=== PATIENT | male | born 1990 | race Caucasian/White ===

== ENCOUNTER 2016-11-26 22:49 | Inpatient (IN) | payer OTHER ==
--- NOTE | ~2016-11-26 | CO ---
Unit #: [id number] #: [id number] Patient: MONICA CALDERON [id number] [address] [address] [id number] I MR#: [id number] NAME: MONICA CALDERON ROOM: [facility] Age: 26 Sex: M Admission Date: 11/27/2016 : 1990 Attending Physician: Garrett Gallego M.D. CONSULTATION REPORT HISTORY OF PRESENT ILLNESS Mr. Calderon is a 26-year-old white male, who was admitted through the emergency room and acute respiratory failure after a drug overdose. History comes from the electronic medical records. The patient is on the ventilator. Apparently, the patient's attempted to call the patient, but could not reach her ; therefore, the patient's brother went to find him he was found cyanotic and not breathing in a car. Apparently according to reports, he possibly took some heroin and on some pain pills from friends. He was brought to the emergency room not breathing and cyanotic, he did have a pulse. He was given Narcan and became extremely combative and confused and required Geodon and then further Narcan. He was combative, but confused. Arterial blood gases revealed a severe acidosis with a pH of 6.9, pCO2 of 52, pO2 of 76 on 5 L. He was subsequently intubated. He subsequently pulled out his endotracheal tube and was reintubated. This morning most recent arterial blood gases revealed pH of 7.33, pCO2 of 43, pO2 of 69 on 40%, assist control of 18, rate of 18, tidal volume 500, PEEP of 5. His BNP is consistent for a sodium of 141, chloride of 105, CO2 of 20, anion gap 16. Liver function tests were elevated. Lactic acid was 5.7. Ammonia level was 99. Alcohol level was 6. His white blood cell count was 27,000. His hematocrit was 49.3, platelet count was normal. Tox screen positive for marijuana and opiates. Urinalysis; 2+ protein, glucose 500, 5 to 10 white cells. Blood cultures currently pending. Urine culture is pending. PAST MEDICAL HISTORY History of GERD. ALLERGIES No known allergies. MEDICATIONS Unknown medications. FAMILY HISTORY Apparently, negative for heart disease. SOCIAL HISTORY He is and has child. Drinks occasional beer. Some marijuana. Nonsmoker. REVIEW OF SYSTEMS Not possible, the patient intubated and sedated. PHYSICAL EXAMINATION Unit #: [id number] #: [id number] Patient: MONICA CALDERON GENERAL: White male, orally intubated, #8 ET tube. VITAL SIGNS: Blood pressure is 102/63, pulse 105, respiratory rate 16, and afebrile temperature 99.1. HEENT: Normocephalic and atraumatic. Pupils are equal, round, reactive. Sclerae nonicteric. Nasal passages patent. Orally intubated. NECK: Supple. Trachea midline. No cervical or supraclavicular lymphadenopathy. LUNGS: Clear. CARDIAC: Regular rate and rhythm. Could not appreciate murmur, rub, or gallop. ABDOMEN: Nontender. Bowel sounds present. No hepatosplenomegaly. EXTREMITIES: Without clubbing, cyanosis, or edema. NEURO: Sedated on vent. SKIN: Warm and dry. DIAGNOSTIC STUDIES LABORATORY RESULTS: Reviewed. Other lab work as noted. IMAGING STUDIES: Chest x-ray shows ET tube about 2 cm above raghav. Mild right lower lobe infiltrate. IMPRESSION 1. Drug overdose secondary to opiates. 2. Combined metabolic and respiratory acidosis, this improving. 3. Right lower lobe aspiration pneumonia. 4. Elevated liver function tests. PLAN Vent support, wean vent when he can control airway, sedation as needed, antibiotics for aspiration pneumonia, DVT prophylaxis, ulcer prophylaxis. We will also check acetaminophen level given elevated liver function tests. We will make further recommendations pending this. Dictated by... Cash Lindsey M.D. SHERON/eris TD: 11/28/2016 01:02 JOB #: [id number] CONSULTATION REPORT Page 1 of 1 X Cash Lindsey MD X CONSULTATION REPORT
--- NOTE | ~2016-11-26 | A ---
[facility] & [facility] Nutrition Therapy DATE: 11/27/16 Patient: MONICA CALDERON Physician: CINTIA Address: [address] [place] [address] Room/Bed: [address], Zip: [place] [address] Admit Date: 11/27/16 Date of : [birth year] Height: 5 7 Weight: 152 69 NUTRITIONAL ASSESSMENT: REASON: NPO 26 y/o male admitted for OD PMH: GERD, peptic ulcer disease, ETOH and drug abuse Anthropometrics: Ht: 5'7" Wt: 69.1 kg (152#) BMI: 23.9 Labs: Gluc 145, AST 309, ALT 275, POC 268 Meds: Propofol @ 12.8 mL/hr, Pepcid I/O & Bowel function: 352/850, last BM 11/26 Skin Integrity: bruising (scattered), no edema noted Estimated Nutrition Needs: 9517-5346 kcal (25-30 kcal/kg) 83-103 g protein (1.2-1.5 g/kg) Assessment: Chart reviewed, events noted. Pt was admitted for heroine OD. Pt is currently on the vent, questionable plans to extubate tomorrow morning. Pt has a NGT to low wall suction due to pt having emesis. Per RN, pt vomited causing aspiration pneumonia. Pt is receiving propofol @ 12.8 ml/hr, giving an extra 338 kcal/d. No plans for nutrition support at this time. See recommendations below. Dx: Inadequate oral intake RT current clinical condition AEB NPO status. Intervention: 1. Enteral nutrition Monitoring, Evaluation and Goals: 1. Enteral nutrition; provide ~80-100% of estimated energy needs/ goal volume 2. Labs; WNL 3. Weight; prevent unintentional weight loss 4. GI; promote regular GI function Recommendations: 1. If the pt remains intubated, initiate enteral nutrition with Jevity 1.5 @ 20 mL/hr. Increase by 10 mL q 8 hrs as tolerated to indicated goal rate: [facility] Nutrition Therapy DATE: 11/27/16 Patient: MONICA CALDERON Physician: CINTIA Address: [address] [place] [address] Room/Bed: [address], Zip: [place] [address] Admit Date: 11/27/16 Date of : [birth year] Height: 5 7 Weight: 152 69 WHILE THE PT IS RECEIVING PROPOFOL: -Increase Jevity 1.5 to 45 mL/hr + 30 mL Prostat daily. This will provide: 2058 kcal/ 84 g protein/ 820 mL free H2O. WHEN THE PT IS NO LONGER RECEIVING PROPOFOL: -Discontinue Prostat -Increase Jevity 1.5 to 55 mL/hr to provide: 1980 kcals/ 84 grams protein/ 1003 mL free H20 2. If the pt is extubated, recommend DERMATOLOGIST evaluation if pt is intubated for >24 hrs. Pt is at a moderate-severe nutrition risk. RD will f/u per protocol. Respectfully, Araceli Hinds, Industrial Hire Sales Assistant Marlene Perry RD, LD Food and Nutritional Services [facility] cc: client file
--- NOTE | ~2016-11-26 | CR72 ---
[facility] A Service of [facility] & [facility] RADIOLOGY TEXT RESULTS PATIENT: MONICA CALDERON LOCATION: [place] [id number] : [birth year] UNIT #: [id number] AGE: [address]: Garrett Gallego MD SEX: M ORDER DR: [id number] [facility] [address] [place], [place] [address] [id number] I MR#: [id number] Acc #: [id number] NAME: MONICA CALDERON : 1990 SEX: M STUDY DATE/TIME: 11/26/2016 23:44 UNIT: [facility] ROOM: [facility] STUDY DESCRIPTION: CR Chest Single View Portable Attending Physician: Heather Scott M.D. Ordering Physician: Helen Concepcion M.D. Primary Care Physician: No Primary Care Physician MEDICAL IMAGING REPORT This report is preliminary unless electronic signature is present EXAM AP portable chest 11/26/2016 HISTORY A 26-year-old male in the ED after reported drug overdose. Respiratory failure. Intubated. TECHNIQUE AP portable chest x-ray. FINDINGS Endotracheal tube tip is in the uppermost thoracic trachea about 6 cm above the raghav with retention balloon in the lower cervical trachea. The lungs are symmetrically expanded and clear. No visible pneumomediastinum or pneumothorax. IMPRESSION Endotracheal tube tip in the uppermost thoracic trachea as noted above. Dictated by... Aryan Cevallos M.D. THIS IS AN ELECTRONICALLY VERIFIED REPORT Aryan Cevallos M.D. at 11/27/2016 9:53 PM Dario TD: 11/27/2016 06:53 JOB #: [id number] MEDICAL IMAGING REPORT Page 1 of 1 COPY
--- NOTE | ~2016-11-26 | CO ---
Unit #: [id number] #: [id number] Patient: MONICA CALDERON [id number] [address] [address] [id number] I MR#: [id number] NAME: MONICA CALDERON ROOM: 568 Age: 26 Sex: M Admission Date: 11/27/2016 : 1990 Attending Physician: Garrett Gallego M.D. Consultation Date: 11/28/2016 CONSULTATION REPORT REASON FOR CONSULTATION Elevated troponin. HISTORY OF PRESENT ILLNESS This is a 26-year-old white male, new to our group with a past medical history of GERD, polysubstance abuse, and occasional alcohol use. The patient is currently on a ventilator and information has been obtained from documentation and nursing staff. The patient is alert and off sedation and is also able to nod his head. There are no reports of hypertension, hyperlipidemia, diabetes mellitus, myocardial infarction, or cerebrovascular accident. The patient has no past surgical history or home medications. He does use marijuana and heroin. He presented to the emergency department after being found unresponsive. Family went to check on him and he was reportedly in a car and not responding to commands. EMS was dispatched and he was given Narcan. He subsequently became agitated and received Geodon. He was unable to protect his airway and he was subsequently intubated. His initial labs revealed a lactic acid of 5.7. White blood cell count was high. Chest x-ray showed concern for aspiration pneumonia. He was admitted to the intensive care unit and started on antibiotics. Additional labs revealed elevated LFTs. Troponin was elevated at 0.91 and then 1.03. EKG revealed sinus tachycardia with some motion artifact. There were no acute ST or T-wave changes. A 2D echocardiogram was completed at the bedside and revealed normal valves. There was some mild hypokinesis of the left ventricle. Ejection fraction was reduced at 35% to 40%. Cardiology was consulted for elevated troponin. PAST MEDICAL HISTORY 1. GERD. 2. Polysubstance abuse with heroin and marijuana and occasional alcohol use. 3. Nonsmoker. PAST SURGICAL HISTORY None. HOME MEDICATIONS None. ALLERGIES No known drug allergies. SOCIAL HISTORY Unit #: [id number] #: [id number] Patient: PATKOVIC,ASMIR Difficult to obtain per patient. According to documentation, the patient has a history of heroin and marijuana use. This has been confirmed on urine toxicology. There are no reports of tobacco abuse. FAMILY HISTORY Difficult to obtain per patient. REVIEW OF SYSTEMS Difficult to obtain per patient. Please see details in HPI. PHYSICAL EXAMINATION VITAL SIGNS: Temperature 97.7, pulse 72, blood pressure 109/66. CONSTITUTIONAL: This is a 26-year-old white male, in no acute distress. He is alert, but currently on a ventilator. SKIN: Moist and diaphoretic. NECK: Supple. No jugular vein distention. No hepatojugular reflux. Normal carotid upstrokes. No carotid bruits auscultated. HEART: S1 and S2. Regular rate and rhythm. No murmurs, rubs, or gallops. LUNGS: Bilateral breath sounds have coarse with rhonchi throughout. Respirations even and nonlabored. No rales or wheezes. ABDOMEN: Soft, nontender, and nondistended. Positive bowel sounds auscultated x4 quadrants. No ascites noted. EXTREMITIES: Bilateral lower extremities have no pretibial pitting edema. DP and PT pulses are 2+. Capillary refill less than 2 seconds. DIAGNOSTIC STUDIES LABORATORY RESULTS: White blood cell count 13.8, hemoglobin 13.3, hematocrit 40.9, platelets 137. Sodium 138, potassium 4.3, chloride 113, CO2 of 18, BUN 11, creatinine 0.9, glucose 68, magnesium 2.3, protein 5.9, albumin 3.1, AST 64, ALT 124, alkaline phos 51. Troponin 0.91, 0.91, and 1.03. BNP 56. Ammonia 99. Urine toxicology positive for marijuana and opioids. Urinalysis positive for protein, blood, and white blood cells. Urine culture, blood cultures, and sputum culture pending. CARDIOVASCULAR STUDIES: EKG reveals sinus tachycardia with a ventricular rate of 133 beats per minute. Motion artifact noted. No acute ST-T wave changes. QTc 450 msec. IMPRESSION 1. Drug overdose. 2. Aspiration pneumonia. 3. Elevated troponin. 4. Elevated LFTs. 5. Elevated ammonia. 6. Mild thrombocytopenia. 7. Polysubstance abuse with heroin and marijuana. 8. Occasional alcohol use, noncompliance. PLAN 1. The patient presented to the hospital with a drug overdose and was subsequently intubated and transferred to the intensive care unit. 2. He started on antibiotics for aspiration pneumonia. 3. Cardiology was consulted for elevated troponin. The patient's troponin level is nonspecific. There were no ischemic changes on EKG. 4. A 2D echocardiogram revealed a left ventricular ejection fraction of 35% to 40%, which is most likely due to drug abuse and/or alcohol. 5. We will plan for an elective stress test. The patient will also need Unit #: [id number] #: [id number] Patient: MONICA CALDERON a repeat echo to assess LV function at a later date. 6. No beta-zander or CRISTIAN or ARB will be prescribed at this time due to borderline low blood pressure. 7. The patient needs extensive drug rehabilitation. 8. He has been advised to refrain from drug and alcohol abuse. Dictated by... ASHOK Spaulding TD: 11/29/2016 17:52 JOB #: [id number] CONSULTATION REPORT Page 1 of 1 X X CONSULTATION REPORT
--- NOTE | ~2016-11-26 | EKG ---
PATIENT: MONICA CALDERON UNIT #: [id number] Ventricular Rate: 59 BPM Atrial Rate: 59 BPM P-R Interval: 114 ms QRS Duration: 84 ms Q-T Interval: 422 ms QTC Calculation(Bezet): 417 ms P [place]: 12 degrees Calculated R [place]: 72 degrees Calculated T [place]: 50 degrees Diagnosis Line: Sinus bradycardia with sinus arrhythmia Diagnosis Line: Nonspecific T wave abnormality Diagnosis Line: Abnormal ECG Diagnosis Line: When compared with ECG of 29-NOV-2016 06:13, Diagnosis Line: (unconfirmed) Diagnosis Line: No significant change was found Diagnosis Line: Confirmed by JONATAN CLEMENT MD ([id number]) on Diagnosis Line: 11/30/2016 2:19:49 PM INTERPRETING MD: EVELIN
--- NOTE | ~2016-11-26 | CO ---
Unit #: [id number] #: [id number] Patient: MONICA CALDERON [id number] [address] [place], [place] [address] [id number] MR#: [id number] NAME: MONICA CALDERON ROOM: 568 Age: 26 Sex: M Admission Date: 11/27/2016 : 1990 Attending Physician: Garrett Gallego M.D. Consultation Date: 11/30/2016 CONSULTATION REPORT REASON FOR CONSULTATION Accidental overdose on opiate, history of alcohol abuse. HISTORY OF PRESENT ILLNESS Monica is a 26-year-old male, seen in room 568 on 11/30/2016 at [facility]. The patient was admitted on 11/27/2016 with opioid overdose accidental with respiratory failure. The patient reports that he uses alcohol and it runs in the family. The patient reports that his brother has a problem with the opioid abuse and he gave him some and he took it, and ended up in the hospital. The patient needed Narcan, was extremely combative and confused. The patient responded well with the treatment and doing better. The patient currently denied any suicidal or homicidal ideation. Denied any psychotic symptom, but agreed to get some help. PAST PSYCHIATRIC HISTORY Remarkable for history of alcohol abuse. No history of any depression or any inpatient treatment or outpatient treatment. MEDICAL HISTORY AND MEDICATION HISTORY History of GERD, peptic ulcer disease. ALLERGIES No known drug allergies. FAMILY HISTORY AND SOCIAL HISTORY The patient has a good support system. , has a child, and history of substance abuse. No history of any abuse. REVIEW OF SYSTEMS Complete review of systems is unremarkable for any complaints at this time. MENTAL STATUS EXAMINATION General appearance, the patient dressed casually. Attention span and concentration, fair. Speech, regular rate and coherent. Oriented in time, place, and person. Mood and affect were sad and dysphoric, but able to smile. Thought process, coherent. Thought content, the patient denied any thoughts of harming self or others or any psychotic symptom. Recent and remote memory, fair. Language, able to name object, repeat phrases. Fund of knowledge, fair. Insight and judgment, fair to slightly impaired. DIAGNOSES Psychiatric: Opioid use disorder, severe F11.20; alcohol use disorder, severe, F10.20; mood disorder, not otherwise specified, F32.9. Unit #: [id number] #: [id number] Patient: MONICA CALDERON Secondary diagnosis: Deferred. Medical diagnosis: Please refer to H and P. Stressors: Psychosocial stressors. ASSESSMENT/PLAN 1. Supportive psychotherapy and psychoeducation provided to the patient. 2. Educated about benefits and side effects of medication and course and prognosis of illness. Advised at this time, the patient to follow up on in outpatient CD-IOP program at [facility] telephone number and information given #[phone]. Please feel free to call if any questions, telephone #[phone]. Dictated by... Dorota Bradley/eris TD: 12/01/2016 02:39 JOB #: [id number] CONSULTATION REPORT Page 1 of 1 X Mohinder Tello MD X CONSULTATION REPORT
--- NOTE | ~2016-11-26 | HP ---
Unit #: [id number] #: [id number] Patient: MONICA CALDERON [id number] [address] [place], [place] [address] [id number] MR#: [id number] NAME: MONICA CALDERON ROOM: [facility] Age: 26 Sex: M Admission Date: 11/27/2016 : 1990 Attending Physician: Heather Scott M.D. Primary Care Physician: No Primary Care Physician HISTORY AND PHYSICAL CHIEF COMPLAINT Opiate overdose with respiratory failure. HISTORY This 26-year-old male with GERD, is admitted for respiratory failure. Through a crime scene evidence technician phone I spoke with the patient's . She attempted to call her last evening but was unable to reach her . Therefore, the patient's brother went to find him. The patient was found cyanotic, not breathing in a car. I am told that he was with friends earlier, and possibly took heroin, he has been recently taking some pain pills per these friends. In any event, he was brought to this emergency department not breathing, and cyanotic. He did have a pulse. He was given Narcan and became extremely combative and confused. He required 20 mg of IM Geodon afterwards, and then further Narcan. Although he was confused and combative he never followed commands. Ultimately an ABG was performed showing profound mixed metabolic and respiratory acidosis, although more metabolic. He was ultimately intubated. Ended up pulling out his ET tube and required intubation a second time. Chest x-ray does demonstrate an infiltrate at the bases. Labs are notable for elevated lactic acid level, borderline elevated troponin, elevated LFTs. He currently is on a Diprivan drip. PAST MEDICAL HISTORY GERD, possibly peptic ulcer disease. ALLERGIES None. HOME MEDICATIONS Unknown medicine for GERD. FAMILY HISTORY Negative for heart disease. SOCIAL HISTORY The patient lives with his and child. He drinks occasional beer. She knows that he uses marijuana but is unaware that he uses opiates. He does not smoke. REVIEW OF SYSTEMS Impossible to obtain as patient currently is intubated and sedated on a ventilator. Unit #: [id number] #: [id number] Patient: MONICA CALDERON PHYSICAL EXAMINATION GENERAL: Young male currently sedated on a ventilator. VITAL SIGNS: Temperature is 99.1, pulse 114, respirations 15, blood pressure is 90/62, O2 saturation is 98% on 40%. HEENT: Eyes - pupils are constricted. Patient is orally intubated. NECK: Supple without adenopathy or thyromegaly. CHEST: Clear. CARDIAC: Normal S1 and S2 without S3, S4 or murmur. ABDOMEN: Bowel sounds are present. No hepatosplenomegaly, tenderness, or masses. EXTREMITIES: Without clubbing, cyanosis or edema. Pedal pulses are present. No splinter hemorrhages noted over the fingernail beds. NEUROLOGIC: Patient is sedated on a ventilator. He was moving all extremities and was combative earlier, although he was not following commands earlier. DIAGNOSTIC STUDIES LABORATORY STUDIES: Hematocrit is 49.3, white blood count is 27, and normal platelet count. 11 bands noted. SMA 12 - glucose 145, CO2 20, AST 309, ALT 275, alk phos 127. Ammonia level 99. BNP normal. Lactic acid 5.7. Alcohol level 6. Initial troponin 0.91, second troponin 0.91. Urine tox positive for opiates and marijuana. Urinalysis - positive protein and glucose, 5-10 white cells, no red cells. Initial ABG - pH 6.905, pCO2 53, pO2 76, O2 saturation 84% on 5 L of oxygen. Second ABG - pH 7.26, pCO2 46, pO2 377, O2 saturation 98.7% on FIO2 100%, tidal volume 500, PEEP of 5, AC 12. IMAGING STUDIES: Head CT - no acute disease. Second chest x-ray does show a right-sided infiltrate. CARDIOLOGY STUDIES: EKG shows a sinus tachycardia rate 132, otherwise normal. ASSESSMENT 1. Opiate overdose with acute hypoxic, mildly hypercapnic respiratory failure and likely aspiration pneumonia. Although patient never lost his pulse, he had no respirations for an unknown period of time. 2. Mildly elevated troponin. Again unknown how long patient was hypoxic, which may have caused some ischemia. 3. Elevated LFTs, rule out shock liver, rule out hepatitis. PLANS 1. IV fluids. 2. Zosyn pending cultures. 3. Aspirin and check echo. 4. Repeat cardiac enzymes. 5. Continue sedation for now. 6. Will assess patient later today and turn sedation off to determine his neurologic status. 7. DVT and gastritis prophylaxis. 8. Pulmonary consultation. 9. Hepatitis profile. 10. Further workup depending on above. Critical care time spent evaluating this patient was 40 minutes. Unit #: [id number] #: [id number] Patient: MONICA CALDERON Dictated by Heather Scott M.D. AML/ts TD: 11/27/2016 06:04 JOB #: [id number] HISTORY AND PHYSICAL Page 1 of 1 X Heather Scott MD X HISTORY AND PHYSICAL
--- NOTE | ~2016-11-26 | CT71 ---
[facility] A Service of [facility] RADIOLOGY TEXT RESULTS PATIENT: MONICA CALDERON LOCATION: [address] : [birth year] UNIT #: [id number] AGE: [address]: Garrett Gallego MD SEX: M ORDER DR: [id number] [facility] [address] [facility] [place], [place] [address] [id number] MR#: [id number] #: [id number] NAME: MONICA CALDERON : 1990 SEX: M STUDY DATE/TIME: 11/27/2016 1:57 UNIT: [facility]3 ROOM: [facility] STUDY DESCRIPTION: CT Head Wo Contrast Attending Physician: Heather Scott M.D. Ordering Physician: Helen Concepcion M.D. Primary Care Physician: No Primary Care Physician MEDICAL IMAGING REPORT This report is preliminary unless electronic signature is present EXAM CT head, noncontrast, 11/27/2016 HISTORY 26-year-old male in the ED unresponsive and intubated after reported drug overdose. TECHNIQUE CT examination of the head was performed without IV contrast. This CT exam was performed with one or more of the following radiation dose reduction techniques: Automatic exposure control, adjustment of mA and/or kV according to patient size, and iterative reconstruction. FINDINGS The examination is negative. No evidence of intracranial hemorrhage, mass, mass effect, cerebral edema or hydrocephalus. No visible skull fracture. Mucosal thickening in the ethmoid and maxillary sinuses. IMPRESSION Negative head CT examination. Dictated by... Aryan Cevallos M.D. THIS IS AN ELECTRONICALLY VERIFIED REPORT Aryan Cevallos M.D. at 11/27/2016 9:54 PM RGW/earl TD: 11/27/2016 07:24 JOB #: [id number] MEDICAL IMAGING REPORT [facility] A Service [facility] RADIOLOGY TEXT RESULTS PATIENT: MONICA CALDERON LOCATION: [address] : [birth year] UNIT #: [id number] AGE: [address]: Garrett Gallego MD SEX: M ORDER DR: Page 1 of 1 COPY
--- NOTE | ~2016-11-26 | CR72 ---
[facility] A Service of [facility] & [facility] RADIOLOGY TEXT RESULTS PATIENT: MONICA CALDERON LOCATION: [place] [id number] : [birth year] UNIT #: [id number] AGE: [address]: Garrett Gallego MD SEX: M ORDER DR: [id number] [facility] [address] [place], [place] [address] [id number] I MR#: [id number] Acc #: [id number] NAME: MONICA CALDERON : 1990 SEX: M STUDY DATE/TIME: 11/27/2016 0:26 UNIT: [facility] ROOM: [facility] STUDY DESCRIPTION: CR Chest Single View Portable Attending Physician: Heather Scott M.D. Ordering Physician: Helen Concepcion M.D. Primary Care Physician: No Primary Care Physician MEDICAL IMAGING REPORT This report is preliminary unless electronic signature is present EXAM AP portable chest 11/27/2016 (0026 hours) HISTORY Repositioned endotracheal tube. Drug overdose. TECHNIQUE AP portable chest x-ray. FINDINGS The repositioned endotracheal tube is in good position in the lower thoracic trachea about 3 cm above the raghav. Increasing infiltrate or atelectasis in the right posterior lung base since the earlier examination. The remainder of the exam is negative. Dictated by... Aryan Cevallos M.D. THIS IS AN ELECTRONICALLY VERIFIED REPORT Aryan Cevallos M.D. at 11/27/2016 9:53 PM RGW/df TD: 11/27/2016 07:01 JOB #: [id number] MEDICAL IMAGING REPORT Page 1 of 1 COPY
--- NOTE | ~2016-11-26 | EKG ---
PATIENT: MONICA CALDERON UNIT #: [id number] Ventricular Rate: 68 BPM Atrial Rate: 68 BPM P-R Interval: 120 ms QRS Duration: 82 ms Q-T Interval: 406 ms QTC Calculation(Bezet): 431 ms P [place]: 4 degrees Calculated R [place]: 72 degrees Calculated T [place]: 66 degrees Diagnosis Line: Normal sinus rhythm with sinus arrhythmia Diagnosis Line: Normal ECG Diagnosis Line: When compared with ECG of 26-NOV-2016 23:50, Diagnosis Line: Vent. rate has decreased BY 64 BPM Diagnosis Line: Confirmed by RICHMOND BEVERLY MD ([id number]) on 11/30/2016 Diagnosis Line: 7:27:18 AM INTERPRETING MD: RUSH VILLEDA
--- NOTE | ~2016-11-26 | CR72 ---
[facility] A Service of [facility] & [facility] RADIOLOGY TEXT RESULTS PATIENT: MONICA CALDERON LOCATION: [place] [address] : [birth year] UNIT #: [id number] AGE: [address]: Garrett Gallego MD SEX: M ORDER DR: [id number] [facility] [address] [place], [place] [address] [id number] I MR#: [id number] Acc #: [id number] NAME: MONICA CALDERON : 1990 SEX: M STUDY DATE/TIME: 11/28/2016 4:58 UNIT: [facility] ROOM: [facility] STUDY DESCRIPTION: CR Chest Single View Portable Attending Physician: Garrett Gallego M.D. Ordering Physician: Heather Scott M.D. Primary Care Physician: Primary Care Physician No MEDICAL IMAGING REPORT This report is preliminary unless electronic signature is present EXAM AP portable chest 11/28/2016 HISTORY 26-year-old male admitted through the ED yesterday with drug overdose. Intubated. Follow up pulmonary status. TECHNIQUE AP portable chest x-ray. FINDINGS Endotracheal tube and NG tube are in good position. Improved right lung base infiltrate since yesterday. Lungs otherwise clear. Heart size normal. IMPRESSION Improving infiltrate or atelectasis in the right base since yesterday. Support devices in good position. Dictated by... Aryan Cevallos M.D. THIS IS AN ELECTRONICALLY VERIFIED REPORT Aryan Cevallos M.D. at 12/02/2016 5:01 PM MINA/ramon TD: 11/28/2016 08:47 JOB #: [id number] MEDICAL IMAGING REPORT Page 1 of 1 COPY
--- NOTE | ~2016-11-26 | CR72 ---
[facility] A Service of [facility] & [facility] RADIOLOGY TEXT RESULTS PATIENT: MONICA CALDERON LOCATION: [facility] [address] : [birth year] UNIT #: [id number] AGE: [address]: Garrett Gallego MD SEX: M ORDER DR: [id number] [facility] [address] [place], [place] [address] [id number] I MR#: [id number] Acc #: [id number] NAME: MONICA CALDERON : 1990 SEX: M STUDY DATE/TIME: 11/29/2016 3:45 UNIT: [facility] ROOM: [facility] STUDY DESCRIPTION: CR Chest Single View Portable Attending Physician: Garrett Gallego M.D. Ordering Physician: Garrett Gallego M.D. Primary Care Physician: No Primary Care Physician MEDICAL IMAGING REPORT This report is preliminary unless electronic signature is present EXAM Frontal chest, 11/29/2016. INDICATION Pneumonia, overdose, respiratory failure, symptoms 3 days. TECHNIQUE Frontal chest compared with 11/28/2016. FINDINGS The patient has been extubated and the enteric tube removed. Cardiac silhouette is within normal limits. The vascularity is unremarkable and the left lung is clear. Worsening opacities in the perihilar and lower lung zone on the right suspicious for pneumonia. No pneumothorax. IMPRESSION Worsening appearance of probable pneumonia in the lower lung zone on the right. No pneumothorax. Dictated by... Randall Meraz M.D. THIS IS AN ELECTRONICALLY VERIFIED REPORT Randall Meraz M.D. at 11/29/2016 10:12 PM MITCHELL/richard TD: 11/29/2016 15:19 JOB #: [id number] MEDICAL IMAGING REPORT Page 1 of 1 COPY
--- NOTE | ~2016-11-26 | EKG ---
PATIENT: MONICA CALDERON UNIT #: [id number] Ventricular Rate: 132 BPM Atrial Rate: 132 BPM P-R Interval: 126 ms QRS Duration: 86 ms Q-T Interval: 304 ms QTC Calculation(Bezet): 450 ms P [place]: 59 degrees Calculated R [place]: 87 degrees Calculated T [place]: 60 degrees Diagnosis Line: Sinus tachycardia Diagnosis Line: Otherwise normal ECG Diagnosis Line: No previous ECGs available Diagnosis Line: Confirmed by ROMEL PRADAHN MD ([id number]) on 11/28/2016 Diagnosis Line: 9:33:46 AM INTERPRETING MD: CAROLYNN VILLEDA
--- NOTE | ~2016-11-26 | DS ---
Unit #: [id number] #: [id number] Patient: MONICA CALDERON [id number] [place] [id number] [place], [place] [address] [id number] I MR#: [id number] NAME: MONICA CALDERON ROOM: 568 Age: 26 Sex: M Admission Date: 11/27/2016 : 1990 Discharge Date: 11/30/2016 Attending Physician: Garrett Gallego M.D. DISCHARGE SUMMARY REASON FOR ADMISSION Opioid overdose with resultant acute respiratory failure. HISTORY OF PRESENT ILLNESS/HOSPITAL COURSE The patient was admitted through above. Please see H and P for complete details. Subsequently secondary to drug overdose, was intubated and placed in ICU. Consultation was placed to Dr. Arreola for evaluation. The patient was gradually extubated and placed on telemetry floor, weaned to room air. At the time of discharge, recommendation has been made for p.o. Levaquin for an additional 5 days for concern for possible aspiration pneumonia. The patient did have mildly elevated troponin levels and therefore, [facility] was consulted. The patient underwent 2D echocardiogram showing ejection fraction 35% to 40%. No other acute process was noted. No vegetations were noted. Today, the patient otherwise feels well. He is ambulatory. Lung exam as well as heart exam appeared to be within normal limits. He is currently breathing on room air and he is stable for discharge. We have mentioned to him the associated long-term detrimental effects of IV and/or polysubstance abuse. He expresses understanding and agreement. At time of discharge, he will be discharged with lisinopril as well as a beta-zander including metoprolol succinate. He will follow up with his PCP in approximately 7 to 10 days for routine hospital followup. He will also follow up with [facility], Dr. Isaac and kel in approximately 4 to 6 weeks for repeat 2D echocardiogram. FINAL DISCHARGE DIAGNOSES 1. Acute respiratory failure secondary to drug overdose. 2. Polysubstance abuse/opioid abuse. 3. Mild elevation of troponin. 4. Systolic heart failure. 5. Transaminitis on admission likely secondary to passive congestion. DISCHARGE CONDITION Stable. Unit #: [id number] #: [id number] Patient: MONICA CALDERON DISCHARGE DISPOSITION Home. FINAL DISCHARGE MEDICATIONS Aspirin 81 mg p.o. daily, Levaquin 500 mg p.o. daily x5 days, Pepcid 20 mg p.o. b.i.d., lisinopril 5 mg p.o. q.h.s., Toprol-XL 25 mg p.o. q.a.m. Dictated by... Dorota Juarez/eris TD: 12/01/2016 00:02 JOB #: [id number] DISCHARGE SUMMARY Page 1 of 1 X Garrett Gallego MD X DISCHARGE SUMMARY
[2016-11-26 22:55] LABS: ARTERIAL BLD GAS O2 SATURATION 84.3 % (90.0-100.0); ARTERIAL BLOOD GAS CARBOXY HB 0.5 %sat (0.0-9.0); ARTERIAL BLOOD GAS HCO3 10.4 mmol/L; ARTERIAL BLOOD GAS MET HB 0.9 %sat (0.0-2.0)
[2016-11-26 22:58] LABS: ARTERIAL BLOOD GAS ALLEN TEST NORMAL; ARTERIAL BLOOD GAS ART SITE RIGHT RADIAL; ARTERIAL BLOOD GAS DELIVERY NASAL CANNULA; ARTERIAL BLOOD GAS PCO2 52.6 mmHg (35.0-45.0); ARTERIAL BLOOD GAS PO2 76.2 mmHg (80.0-100); ARTERIAL BLOOD GAS pH 6.905 (7.350-7.450); ARTERIAL DRAW? YES
[2016-11-27 00:42] LABS: BASOPHIL# 0.1 X10e3 (0-0.3); BASOPHIL% 0.4 % (0-2.5); DIFF IND YES; EOSINOPHIL# 0.1 X10e3 (0-0.7); EOSINOPHIL% 0.3 % (0.0-7.0); HEMATOCRIT 49.3 % (38.0-50.0); HEMOGLOBIN 15.7 gm/dL (13.0-16.0); LYMPHOCYTE# 1.6 X10e3 (1.0-3.5); LYMPHOCYTE% 5.8 % (17.0-45.0); MEAN CELL VOLUME 89.6 FL (83-96); MEAN CORPUSCULAR HEMOGLOBIN 28.6 PG (28-34); MEAN CORPUSCULAR HGB CONC 31.9 g/dL (30-36); MEAN PLATELET VOLUME 8.3 FL (6.5-11.5); MONOCYTE# 0.8 X10e3 (0-1.0); MONOCYTE% 3.1 % (3.0-12.0); NEUTROPHIL# 24.5 X10e3 (1.5-7.1); NEUTROPHIL% 90.4 % (40-75); PLATELET COUNT 250 X10e3 (140-420); RED CELL DISTRIBUTION WIDTH 12.8 % (11.0-15.5)
[2016-11-27 00:45] LABS: POC - CKMB 27.9 ng/mL (0.0-7.9); POC - TROPONIN 0.91 ng/mL (<=0.05)
[2016-11-27 00:55] LABS: NUCLEATED RED BLOOD CELL 1 /100 (0); PLATELET ESTIMATE NORMAL (NORMAL); RBC NORMAL YES
[2016-11-27 00:57] LABS: ARTERIAL BLD GAS O2 SATURATION 98.7 % (90.0-100.0); ARTERIAL BLOOD GAS CARBOXY HB 0.1 %sat (0.0-9.0); ARTERIAL BLOOD GAS HCO3 20.7 mmol/L; ARTERIAL BLOOD GAS MET HB 1.1 %sat (0.0-2.0); ARTERIAL BLOOD GAS PCO2 46.4 mmHg (35.0-45.0); ARTERIAL BLOOD GAS pH 7.259 (7.350-7.450)
[2016-11-27 01:20] LABS: ARTERIAL BLOOD GAS ALLEN TEST NORMAL; ARTERIAL BLOOD GAS ART SITE RIGHT RADIAL; ARTERIAL BLOOD GAS DELIVERY VENT; ARTERIAL BLOOD GAS VENT MODE AC; ARTERIAL DRAW? YES
[2016-11-27 01:28] LABS: URINE SOURCE CLEAN CATCH
[2016-11-27 01:32] LABS: URINE APPEARANCE CLEAR; URINE BILIRUBIN NEG (NEG); URINE BLOOD 2+ (NEG); URINE COLOR YELLOW; URINE GLUCOSE 500 MG/DL (NEG); URINE KETONE NEG (NEG); URINE LEUKOCYTE ESTERASE NEG (NEG); URINE NITRATE NEG (NEG); URINE PROTEIN 2+ (NEG); URINE SPECIFIC GRAVITY 1.017 (1.003-1.035); URINE UROBILINOGEN 0.2 MG/DL (NEG)
[2016-11-27 01:35] LABS: CULTURE INDICATED? YES; URBCS1 AUWI 0-2 /[HPF] (0-2); URINE BACTERIA AUWI NEG (NEGATIVE); URINE SQUAMOUS EPITHELIAL CELL MOD /[HPF]
[2016-11-27 01:42] LABS: AMPHETAMINE NEG (NEG); BARBITURATES NEG (NEG); BENZODIAZEPINES NEG (NEG); COCAINE NEG (NEG); MARIJUANA POS (NEG); OPIATES POS (NEG); TRICYCLIC ANTIDEPRESSANTS NEG (NEG); U METHADONE NEG (NEG); URINE GRANULAR CAST 0-2 /[HPF]
[2016-11-27 01:50] LABS: ALBUMIN SERUM 4.7 g/dL (3.5-5.0); ALCOHOL BLOOD 6 mg/dL (0); ALKALINE PHOSPHATASE 127 U/L (32-92); ALT (SGPT) 275 U/L (10-40); AST (SGOT) 309 U/L (10-42); BILIRUBIN, DIRECT 0.1 mg/dL (0.0-0.2); BILIRUBIN,INDIRECT 0.2 mg/dL (0.0-0.9); BILIRUBIN,TOTAL 0.3 mg/dL (0.2-2.0); BLOOD UREA NITROGEN 19 mg/dL (9-23); BUN/CREATININE RATIO 14.61; CALCIUM SERUM 8.6 mg/dL (8.4-10.2); CARBON DIOXIDE 20 mmol/L (22-31); CHLORIDE 105 mmol/L (100-111); CREATININE SERUM 1.3 mg/dL (0.6-1.4); GLOM FILT RATE Estimated ABOVE60 mL/min (>60); GLUCOSE FASTING 145 mg/dL (70-110); POTASSIUM 3.7 mmol/L (3.5-5.1); PROTEIN TOTAL SERUM 8.3 g/dL (6.0-8.3); SODIUM 141 mmol/L (135-145)
[2016-11-27 03:05] LABS: POC - CKMB 19.6 ng/mL (0.0-7.9); POC - TROPONIN 0.91 ng/mL (<=0.05)
[2016-11-27 04:25] LABS: ARTERIAL BLD GAS O2 SATURATION 94.7 % (90.0-100.0); ARTERIAL BLOOD GAS CARBOXY HB 0.2 %sat (0.0-9.0); ARTERIAL BLOOD GAS HCO3 17.7 mmol/L; ARTERIAL BLOOD GAS MET HB 0.7 %sat (0.0-2.0); ARTERIAL BLOOD GAS PCO2 43.2 mmHg (35.0-45.0); ARTERIAL BLOOD GAS PO2 87.6 mmHg (80.0-100); ARTERIAL BLOOD GAS pH 7.221 (7.350-7.450)
[2016-11-27 04:26] LABS: ARTERIAL BLOOD GAS ALLEN TEST NORMAL; ARTERIAL BLOOD GAS ART SITE RIGHT RADIAL; ARTERIAL BLOOD GAS DELIVERY VENT; ARTERIAL BLOOD GAS VENT MODE AC; ARTERIAL DRAW? YES
[2016-11-27] MEDS ORDERED: NO MEDICATIONS (06:52)
[2016-11-27 08:38] LABS: ARTERIAL BLD GAS O2 SATURATION 92.7 % (90.0-100.0); ARTERIAL BLOOD GAS CARBOXY HB 0.3 %sat (0.0-9.0); ARTERIAL BLOOD GAS HCO3 22.6 mmol/L; ARTERIAL BLOOD GAS MET HB 0.7 %sat (0.0-2.0)
[2016-11-27 08:40] LABS: ARTERIAL BLOOD GAS ART SITE RIGHT RADIAL; ARTERIAL BLOOD GAS DELIVERY VENT; ARTERIAL BLOOD GAS PO2 69.1 mmHg (80.0-100); ARTERIAL BLOOD GAS VENT MODE AC; ARTERIAL DRAW? YES
[2016-11-27 10:07] LABS: BASOPHIL% 0.1 % (0-2.5); EOSINOPHIL% 0.1 % (0.0-7.0); HEMATOCRIT 40.1 % (38.0-50.0); LYMPHOCYTE# 1.9 X10e3 (1.0-3.5); LYMPHOCYTE% 11.1 % (17.0-45.0); MEAN CELL VOLUME 88.1 FL (83-96); MEAN CORPUSCULAR HEMOGLOBIN 28.7 PG (28-34); MEAN CORPUSCULAR HGB CONC 32.6 g/dL (30-36); MEAN PLATELET VOLUME 8.5 FL (6.5-11.5); MONOCYTE% 6.1 % (3.0-12.0); NEUTROPHIL# 14.2 X10e3 (1.5-7.1); NEUTROPHIL% 82.6 % (40-75); PLATELET COUNT 178 X10e3 (140-420); RED BLOOD COUNT 4.55 X10e (3.90-5.60); RED CELL DISTRIBUTION WIDTH 12.7 % (11.0-15.5); WHITE BLOOD COUNT 17.1 X10e3 (4.0-10.5)
[2016-11-27 10:09] LABS: HEMOGLOBIN 13.1 gm/dL (13.0-16.0)
[2016-11-27 10:10] LABS: DIFF IND NO
[2016-11-27 10:49] LABS: ALBUMIN SERUM 3.3 g/dL (3.5-5.0); BILIRUBIN,TOTAL 0.2 mg/dL (0.2-2.0); BUN/CREATININE RATIO 13.33; CALCIUM SERUM 7.8 mg/dL (8.4-10.2); CREATININE SERUM 1.2 mg/dL (0.6-1.4); GLOM FILT RATE Estimated 84.2 mL/min (>60); MAGNESIUM 1.7 mg/dL (1.6-3.0); POTASSIUM 4.6 mmol/L (3.5-5.1); PROTEIN TOTAL SERUM 5.6 g/dL (6.0-8.3)
[2016-11-27 15:36] LABS: ARTERIAL BLD GAS O2 SATURATION 98.6 % (90.0-100.0); ARTERIAL BLOOD GAS ART SITE RIGHT RADIAL; ARTERIAL BLOOD GAS HCO3 21.8 mmol/L; ARTERIAL BLOOD GAS PCO2 33.3 mmHg (35.0-45.0); ARTERIAL BLOOD GAS pH 7.424 (7.350-7.450); ARTERIAL DRAW? YES
[2016-11-27 15:37] LABS: ARTERIAL BLOOD GAS DELIVERY VENT; ARTERIAL BLOOD GAS VENT MODE AC
[2016-11-28 05:30] LABS: BASOPHIL% 0.3 % (0-2.5); EOSINOPHIL# 0.3 X10e3 (0-0.7); EOSINOPHIL% 2.2 % (0.0-7.0); HEMATOCRIT 40.9 % (38.0-50.0); HEMOGLOBIN 13.3 gm/dL (13.0-16.0); LYMPHOCYTE# 2.4 X10e3 (1.0-3.5); LYMPHOCYTE% 17.7 % (17.0-45.0); MEAN CELL VOLUME 88.8 FL (83-96); MEAN CORPUSCULAR HEMOGLOBIN 28.9 PG (28-34); MEAN CORPUSCULAR HGB CONC 32.5 g/dL (30-36); MEAN PLATELET VOLUME 8.8 FL (6.5-11.5); MONOCYTE# 1.2 X10e3 (0-1.0); MONOCYTE% 8.4 % (3.0-12.0); NEUTROPHIL# 9.8 X10e3 (1.5-7.1); NEUTROPHIL% 71.4 % (40-75); PLATELET COUNT 137 X10e3 (140-420); RED BLOOD COUNT 4.61 X10e (3.90-5.60); RED CELL DISTRIBUTION WIDTH 12.9 % (11.0-15.5); WHITE BLOOD COUNT 13.8 X10e3 (4.0-10.5)
[2016-11-28 05:43] LABS: DIFF IND NO
[2016-11-28 06:08] LABS: PARTIAL THROMBOPLASTIN TIME 26.6 SECONDS (23.5-31.3); PROTHROMBIN TIME (PATIENT) 10.7 SECONDS (9.6-11.5)
[2016-11-28 06:30] LABS: ALBUMIN SERUM 3.1 g/dL (3.5-5.0); BILIRUBIN,TOTAL 0.4 mg/dL (0.2-2.0); BUN/CREATININE RATIO 12.22; CREATININE SERUM 0.9 mg/dL (0.6-1.4); GLOM FILT RATE Estimated 119.1 mL/min (>60); MAGNESIUM 2.3 mg/dL (1.6-3.0); POTASSIUM 4.3 mmol/L (3.5-5.1); PROTEIN TOTAL SERUM 5.9 g/dL (6.0-8.3)
[2016-11-28 06:50] LABS: %MB 1.5 % (0.0-4.0); MB 9.3 ng/ml
[2016-11-28 13:21] LABS: CHOLESTEROL 146 mg/dL (0-200); HDL CHOLESTEROL 30 mg/dL (29-75); LDL CHOLESTEROL 72 mg/dL (-130); LDL/HDL RATIO 2 RATIO (0-4); TRIGLYCERIDES 218 mg/dL (10-160)
[2016-11-28 13:46] LABS: %MB 1.5 % (0.0-4.0); MB 10.2 ng/ml
[2016-11-29 05:46] LABS: BASOPHIL% 0.4 % (0-2.5); EOSINOPHIL# 0.2 X10e3 (0-0.7); EOSINOPHIL% 2.7 % (0.0-7.0); HEMATOCRIT 34.8 % (38.0-50.0); HEMOGLOBIN 11.5 gm/dL (13.0-16.0); LYMPHOCYTE# 2.3 X10e3 (1.0-3.5); LYMPHOCYTE% 27.8 % (17.0-45.0); MEAN CELL VOLUME 87.6 FL (83-96); MEAN CORPUSCULAR HEMOGLOBIN 28.9 PG (28-34); MEAN PLATELET VOLUME 8.8 FL (6.5-11.5); MONOCYTE# 0.7 X10e3 (0-1.0); MONOCYTE% 8.5 % (3.0-12.0); NEUTROPHIL% 60.6 % (40-75); PLATELET COUNT 168 X10e3 (140-420); RED BLOOD COUNT 3.97 X10e (3.90-5.60); RED CELL DISTRIBUTION WIDTH 12.8 % (11.0-15.5); WHITE BLOOD COUNT 8.3 X10e3 (4.0-10.5)
[2016-11-29 05:53] LABS: DIFF IND NO
[2016-11-29 06:38] LABS: BUN/CREATININE RATIO 12.5; CALCIUM SERUM 8.2 mg/dL (8.4-10.2); CREATININE SERUM 0.8 mg/dL (0.6-1.4); GLOM FILT RATE Estimated 125.1 mL/min (>60)
[2016-11-30 04:52] LABS: BASOPHIL% 0.5 % (0-2.5); EOSINOPHIL# 0.2 X10e3 (0-0.7); EOSINOPHIL% 2.4 % (0.0-7.0); HEMATOCRIT 38.2 % (38.0-50.0); HEMOGLOBIN 12.5 gm/dL (13.0-16.0); LYMPHOCYTE# 2.2 X10e3 (1.0-3.5); MEAN CELL VOLUME 86.6 FL (83-96); MEAN CORPUSCULAR HEMOGLOBIN 28.4 PG (28-34); MEAN CORPUSCULAR HGB CONC 32.8 g/dL (30-36); MEAN PLATELET VOLUME 8.6 FL (6.5-11.5); MONOCYTE# 0.5 X10e3 (0-1.0); MONOCYTE% 6.5 % (3.0-12.0); NEUTROPHIL# 5.3 X10e3 (1.5-7.1); NEUTROPHIL% 63.6 % (40-75); PLATELET COUNT 211 X10e3 (140-420); RED BLOOD COUNT 4.41 X10e (3.90-5.60); RED CELL DISTRIBUTION WIDTH 12.8 % (11.0-15.5); WHITE BLOOD COUNT 8.3 X10e3 (4.0-10.5)
[2016-11-30 04:54] LABS: DIFF IND NO
[2016-11-30 05:08] LABS: BUN/CREATININE RATIO 8.75; CALCIUM SERUM 8.5 mg/dL (8.4-10.2); CREATININE SERUM 0.8 mg/dL (0.6-1.4); GLOM FILT RATE Estimated 125.1 mL/min (>60); MAGNESIUM 1.7 mg/dL (1.6-3.0); POTASSIUM 3.9 mmol/L (3.5-5.1)
[2016-11-30] MEDS ORDERED: METOPROLOL SUCC25 MG PO (17:42)
[2016-11-30] MEDS ORDERED: LISINOPRIL5 MG PO (17:43)
[2016-11-30] MEDS ORDERED: ACID CONTROLLER20 MG PO (17:44)
[2016-11-30] MEDS ORDERED: ASPIRIN81 MG PO (17:44)
[2016-11-30] MEDS ORDERED: LEVOFLOXACIN500 MG PO (17:45)
[2016-12-02 09:02] LABS: HA AB IGM (HEPPAN) Nonreactive (Nonreactive); HB CORE AB IGM (HEPPAN) Nonreactive (Nonreactive); HB S AG (HEPPAN) Nonreactive (Nonreactive); HEP C AB (HEPPAN) Nonreactive (Nonreactive); HEP C AB SIGNAL TO CUTOFF 0.01 ratio (<1.00)
== END 2016-11-30 19:40 | disposition home or self-care (01) | DRG 871 ==
LOC: CED 22:49 → CEDOF 11-27 03:27 → CICCU3 11-27 05:38 → C5C 11-29 20:52
PROVIDERS: Emergency Medicine; Family Medicine; Internal Medicine; Internal Medicine Cardiovascular Disease
PROC: B24BZZZ Ultrasonography of Heart with Aorta (ICD-10-PCS; principal; 2016-11-27)
DX: A41.9 Sepsis, unspecified organism (principal); J96.01 Acute respiratory failure with hypoxia; J69.0 Pneumonitis due to inhalation of food and vomit; I50.31 Acute diastolic (congestive) heart failure; J96.02 Acute respiratory failure with hypercapnia; E87.4 Mixed disorder of acid-base balance; D69.6 Thrombocytopenia, unspecified; F11.20 Opioid dependence, uncomplicated; I50.20 Unspecified systolic (congestive) heart failure; R65.20 Severe sepsis without septic shock; R00.0 Tachycardia, unspecified; K21.9 Gastro-esophageal reflux disease without esophagitis; F19.10 Other psychoactive substance abuse, uncomplicated; F10.20 Alcohol dependence, uncomplicated; F32.9 Major depressive disorder, single episode, unspecified; T40.2X1A Poisoning by other opioids, accidental (unintentional), initial encounter; R74.0 Nonspecific elevation of levels of transaminase and lactic acid dehydrogenase [LDH]; Z79.82 Long term (current) use of aspirin
CPT/HCPCS: 36415; 36600; 51702; 70450; 71010; 80048; 80053; 80061; 80074; 80076; 80307; 81003; 82140; 82550; 82553; 82803; 82947; 83605; 83735; 83880; 84443; 84484; 85025; 85610; 85730; 87040; 87070; 87077; 87086; 87186; 87205; 93005; 93306; 94002; 94003; 94760; 96365; 96375; 99291; G0480; J0330; J1650; J2250; J2310; J2405; J2543; J3010; J3475; J3486